=== PATIENT | male | born 1980 | race African-American/Black ===

== ENCOUNTER 2017-08-19 13:41 | Emergency (ER) | payer OTHER ==
[2017-08-19] MEDS: IBUPROFEN 800 MG TAB PO (14:45)
== END 2017-08-19 14:51 | disposition home or self-care (01) ==
LOC: M ED 13:41
DX: S82.301A Unspecified fracture of lower end of right tibia, initial encounter for closed fracture (principal); X50.1XXA Overexertion from prolonged static or awkward postures, initial encounter; Y92.830 Public park as the place of occurrence of the external cause; Y93.67 Activity, basketball
CPT/HCPCS: 73610

== ENCOUNTER → 2018-05-21 | Outpatient (CLI) | payer OTHER ==
[~2018-05-21] MED LIST: IBUP80TA PO; NORCOTAB PO
--- NOTE | 2018-05-24 10:07 | SLEEPCENT ---
DATE OF PROCEDURE: 05/21/2018 ORDERED BY: Arianna Hartman Nocturnal polysomnography was performed for evaluation of sleep physiology in this patient with excessive somnolence and nonrestorative sleep. 7 hours and 50 minutes of data were reviewed. There were 359 minutes of sleep identified. Sleep latency was prolonged at 66 minutes. Rapid eye movement (REM) latency was prolonged at 149 minutes. Sleep architecture showed poor progression early in the study. Some REM was appreciated later, there were 3 REM cycles noted. Overall sleep efficiency was 77.3%. The patient's electrocardiogram showed sinus rhythm with an average heart rate of 90 beats per minute. Electroencephalogram (EEG) showed fairly normal waveforms for awake and sleep. Some mild artifactual change is noted. There were 92 respiratory events identified of 10 seconds in duration or greater for an apnea-hypopnea index of 15.4. The events were obstructive and associated with arousals 5.2 times per hour. Oxygen desaturations were seen into the 80s with minimal limb activity. Limb movement arousal index of 2. Significant snoring was noted over the entire study. IMPRESSION: Obstructive sleep apnea syndrome (G47.33), apnea-hypopnea index 15.4. RECOMMENDATION: The patient should be encouraged to return to the sleep disorder center for pressure therapy. In the interim, alcohol and sedative avoidance should be practiced and caution exercised during the operation of motor vehicles.
== END ==
LOC: M SLEEP 19:56
PROVIDERS: ATTEND Nurse Practitioner Family
DX: G47.33 Obstructive sleep apnea (adult) (pediatric) (principal)

== ENCOUNTER → 2018-07-05 | Outpatient (CLI) | payer OTHER ==
[~2018-07-05] MED LIST changes: +HYDR-3715 PO; -NORCOTAB PO
--- NOTE | 2018-07-10 14:39 | SLEEPCENT ---
DATE OF PROCEDURE: 07/05/2018 ORDERING PROVIDER: Arianna Hartman NP Nocturnal polysomnography was performed for the titration of pressure therapy in this patient with obstructive sleep apnea syndrome. Apnea-hypopnea index 15.4. For testing, the patient was fit with a [employer]Med soft edged wide mask, 4 cm of water pressure were applied to the circuit, and the lights were extinguished. 8 hours and 14 minutes of data were reviewed. There were 357 minutes of sleep identified. Sleep latency was prolonged at 82.5 minutes. Rapid eye movement (REM) latency was short at 65 minutes. Sleep architecture improved with optimal pressure therapy. Overall sleep efficiency was 73.2%. There were three REM cycles noted. The electrocardiogram showed a sinus rhythm with an average heart rate of 80 beats per minute. Electroencephalogram (EEG) showed normal waveforms for awake and sleep. Respiratory events were well palliated with C-PAP at a pressure of +7. Remaining measures of sleep physiology were reasonably normal. IMPRESSION Obstructive sleep apnea syndrome (G47.33). RECOMMENDATIONS: Nightly use of pressure therapy 7 cm of water.
== END ==
LOC: M SLEEP 19:59
PROVIDERS: ATTEND Nurse Practitioner Family
DX: G47.33 Obstructive sleep apnea (adult) (pediatric) (principal)

== ENCOUNTER → 2018-08-03 | Outpatient (CLI) | payer OTHER ==
--- NOTE | 2018-08-06 10:27 | REP ---
MRI RIGHT ANKLE: TECHNIQUE: Sagittal proton density, STIR, axial proton density fat sat, T1, coronal proton density, STIR. The Achilles, anterior tibial, flexor hallucis longus, flexor digitorum longus and peroneal tendons are all intact. There is diffuse thickening and mild increased signal involving the posterior tibial tendon with a tiny amount of surrounding fluid. This is compatible with mild to moderate tendinopathy/tendonitis. There is associated marrow edema involving the medial malleolus diffusely adjacent to the inflamed tendon. Anterior and posterior talofibular, calcaneal fibular, tibiofibular and deltoid ligaments are intact. Plantar tendon demonstrates no abnormal signal. There is no plantar fasciitis. There is a relatively normal amount of joint fluid present. No ganglion cyst is seen. Focal cartilaginous thinning along the lateral talar dome posteriorly is moderate to severe with mild subchondral marrow edema, possibly representing a stage 1 osteochondral lesion. Sinus tarsi demonstrates no abnormal signal. IMPRESSION: Mild to moderate tendinopathy/tendonitis of the posterior tibial tendon with associated subtendinous marrow edema in the medial malleolus. Otherwise no tendon or ligament tear. Moderate to severe cartilaginous thinning focally involving the posterior aspect of the lateral talar dome with mild subchondral marrow edema. This may represent a stage 1 osteochondral lesion. Electronically Signed by En Holland MD 08/06/2018 11:05 A
== END ==
LOC: M RAD 11:54
PROVIDERS: ATTEND Physician Assistant
DX: M25.571 Pain in right ankle and joints of right foot (principal); M77.9 Enthesopathy, unspecified